=== PATIENT | male | born 1935 | race Caucasian/White ===

== ENCOUNTER → 2016-07-22 | Day surgery (SDC) | payer MEDICARE, OTHER ==
[~2016-07-22] MED LIST: ASPIRIN FREE325 MG PO; CIPRO PO; COLACE PO; FERROUS SULFATE PO; LEVAQUIN PO; LORTAB 7.5-5001 TAB PO; LUPRON DEPOT45 MG IM; NOT RECONCILED; PERCOCET5/325 PO; PHENERGAN25 MG PO; PRILOSEC PO; TRIAMCINOLONE AC1 GM EXT; VITAMIN K100 MCG PO
--- NOTE | ~2016-07-22 | OR ---
Unit #: [id number] #: [id number] Patient: ARAMIS NOLEN [id number] [address] [address] [id number] O MR#: [id number] NAME: ARAMIS NOLEN ROOM: Date of Procedure: 07/22/2016 Admission Date: 07/22/2016 Surgeon: Aaron Florian M.D. : 1935 Attending Physician: Aaron Florian M.D. Primary Care Physician: Lucho Ochoa M.D. OPERATIVE REPORT PREOPERATIVE DIAGNOSES 1. History of colonic polyps. 2. Change in bowel habits. POSTOPERATIVE DIAGNOSES 1. Scattered diverticula. 2. 0.2 cm polyp, ascending colon. PROCEDURES PERFORMED 1. Colonoscopy to right colonic anastomosis. 2. Snare electrocautery polypectomy and retrieval of ascending colon polyp. PROCUREMENT ENGINEER None. ANESTHESIA IV sedation. COMPLICATIONS None. INDICATIONS FOR PROCEDURE The patient is an 81-year-old, who presents with persistent constipation. He presents for endoscopic evaluation. DESCRIPTION OF PROCEDURE The patient was taken to the operating theater and placed in left lateral decubitus position. IV sedation was initiated. Digital rectal exam was normal. Colonoscope was then passed under direct vision and navigated to the right colonic anastomosis. The patient was found to have some scattered diverticula. No active inflammation. There was a 0.2 cm polyp. I removed this piecemeal completely in 2 pieces. I retrieved 1 piece. I saw no other abnormality. He tolerated the procedure well and sent to recovery room in good condition. PLAN Recommend Colace on a b.i.d. basis. We will also follow up on his biopsy in 1 week. Dictated by... Unit #: [id number] #: [id number] Patient: ARAMIS NOLEN Caio CardozoO/nicoll TD: 07/22/2016 23:11 JOB #: [id number] OPERATIVE REPORT Page 1 of 1 X Aaron Florian MD PROCEDURE OPERATIVE NOTE
== END | disposition home or self-care (01) ==
LOC: COPS 10:58
DX: D12.2 Benign neoplasm of ascending colon (principal); K57.30 Diverticulosis of large intestine without perforation or abscess without bleeding; K59.00 Constipation, unspecified; Z86.010 Personal history of colon polyps; Z98.0 Intestinal bypass and anastomosis status
CPT/HCPCS: 88305

== ENCOUNTER → 2016-07-29 | Outpatient (CLI) | payer MEDICARE, OTHER ==
--- NOTE | ~2016-07-29 | MR2 ---
[facility] A Service of [facility] RADIOLOGY TEXT RESULTS PATIENT: ARAMIS NOLEN LOCATION: [facility] : 35 UNIT #: [id number] AGE: [address]: Damon Washington MD SEX: M ORDER DR: [id number] [facility] [address] [facility] [place], [place] [address] [id number] O MR#: [id number] Acc #: [id number] NAME: ARAMIS NOLEN : 1935 SEX: M STUDY DATE/TIME: 07/29/2016 13:33 UNIT: [facility] ROOM: STUDY DESCRIPTION: MR Abdomen WWo Cont Attending Physician: Damon Washington M.D. Referring Physician: Damon Washington M.D. Ordering Physician: Damon Washington M.D. Primary Care Physician: Lucho Ochoa M.D. MRI CENTER REPORT This report is preliminary unless electronic signature is present. EXAM MRI abdomen with and without contrast. INDICATION Indeterminate liver lesions on previous outside CT. Further characterization. The patient has a history of prostate cancer diagnosed in 2006 and colon resection in 2007. PROCEDURE Multiplanar, multisequence MR imaging of the abdomen prior to and following 17 mL of MultiHance. FINDINGS ABDOMEN WITHOUT CONTRAST: The liver has normal size and morphology. No significant hepatic fat or iron deposition. The spleen and adrenal glands have normal signal. Gallbladder has normal signal. Bowel loops nondilated. There are a few small peripelvic cysts in the left kidney and a subcentimeter cyst in the right kidney. There is a 1.3 cm cyst in the neck of the pancreas. Otherwise, pancreas shows normal signal. ABDOMEN WITH CONTRAST: There is a combination of benign cysts and hemangiomas in the liver. Dominant cyst at the junction of segments 2 and 4a measures 4.4 cm. An index hemangioma in segment 8 measures 2.3 cm. Second index hemangioma at the junction of segments 5 and 6 measures 1.7 cm. No worrisome liver lesion. The pancreatic cyst shows no internal enhancement. No abnormal enhancement is seen elsewhere in the abdomen. IMPRESSION 1. 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 No worrisome liver lesion. 2. 1.3 cm cyst in the neck of the pancreas. There are no internal STS. [facility] A Service of [facility] RADIOLOGY TEXT RESULTS PATIENT: ARAMIS NOLEN LOCATION: [facility] : 35 UNIT #: [id number] AGE: [address]: Damon Washington MD SEX: M ORDER DR: enhancing elements. Probably represents a benign incidental cyst. This cyst is not significantly changed dating back to a more remote CT from 2009 and is in keeping with a benign finding. Dictated by... Petr Hernandez M.D. THIS IS AN ELECTRONICALLY VERIFIED REPORT Petr Hernandez M.D. at 07/30/2016 3:55 PM ROMULO/erin TD: 07/30/2016 09:23 JOB #: [id number] MRI CENTER REPORT Page 1 of 1 COPY
[2016-07-29 16:16] LABS: POC - CREATININE 1.12 mg/dL (0.64-1.27); POC - GFR >60.0 mL/min (>60)
== END | disposition home or self-care (01) ==
LOC: CMRI 12:33
PROVIDERS: Urology
DX: K76.9 Liver disease, unspecified (principal); D18.03 Hemangioma of intra-abdominal structures; K76.89 Other specified diseases of liver; K86.2 Cyst of pancreas; Z85.038 Personal history of other malignant neoplasm of large intestine; Z90.49 Acquired absence of other specified parts of digestive tract
CPT/HCPCS: 74183; 82565; A9577